=== PATIENT | male | born 1990 | race Caucasian/White ===

== ENCOUNTER 2017-04-02 18:44 | Emergency (ER) | payer SELFPAY ==
[~2017-04-02] VITALS: Ht 180.3 cm; Wt 80.6 kg
[2017-04-02 18:50] VITALS: BP 111/72
== END 2017-04-02 19:44 | disposition home or self-care (01) ==
LOC: ED 19:30
DX: M25.561 Pain in right knee (principal); G89.11 Acute pain due to trauma
CPT/HCPCS: 29505

== ENCOUNTER 2018-01-08 22:46 | Emergency (ER) | payer SELFPAY ==
[~2018-01-08] VITALS: Ht 177.8 cm; Wt 82.3 kg
[2018-01-08] MEDS ORDERED: ONDANSETRON ODT 4 MG PO ONE (23:30)
[2018-01-08 23:32] LABS: BASOPHILS # (AUTO) 0.05 x10^3/uL (0-0.1); BASOPHILS % (AUTO) 1 % (0-1); EOSINOPHILS # (AUTO) 0.15 x10^3/uL (0-0.4); EOSINOPHILS % (AUTO) 2 % (1-7); LYMPHOCYTES # (AUTO) 2.03 x10^3/uL (1-3.4); LYMPHOCYTES % (AUTO) 32 % (22-44); MD NO; MEAN CORPUSCULAR HEMOGLOBIN 31.9 pg (27.5-34.5); MEAN CORPUSCULAR HGB CONC 34.2 g/dL (33.2-36.2); MEAN CORPUSCULAR VOLUME 93.2 fL (81-97); MEAN PLATELET VOLUME 9.9 fL (7.4-10.4); MONOCYTES # (AUTO) 0.39 x10^3/uL (0.2-0.8); MONOCYTES % (AUTO) 6 % (2-9); NEUTROPHILS # (AUTO) 3.74 x10^3/uL (1.8-6.8); NEUTROPHILS % (AUTO) 59 % (42-75); PLATELET COUNT 126 x10^3/uL (130-400); RED BLOOD COUNT 4.92 x10^6/uL (4.38-5.82); RED CELL DISTRIBUTION WIDTH 14.9 % (9.4-14.8)
[2018-01-08 23:40] LABS: ALBUMIN 3.8 g/dL (3.4-5.0); ANION GAP 7 mmol/L (5-15); CALCIUM 8.8 mg/dL (8.5-10.1); CHLORIDE 107 mmol/L (98-107)
[2018-01-08 23:44] LABS: ALANINE AMINOTRANSFERASE 36 U/L (12-78); ALKALINE PHOSPHATASE 91 U/L (45-117); BILIRUBIN,TOTAL 0.4 mg/dL (0.2-1.0); CREATININE 1.21 mg/dL (0.7-1.3)
[2018-01-09] MEDS ORDERED: ONDANSETRON ODT 4 MG ONE (00:03)
[2018-01-09 00:04] LABS: MICROSCOPIC NOT IND
[2018-01-09 00:12] LABS: CULTURE INDICATED? NO
[2018-01-09 02:15] VITALS: BP 106/64
== END 2018-01-09 02:41 | disposition home or self-care (01) ==
LOC: ED 23:59
DX: R10.32 Left lower quadrant pain (principal); R11.0 Nausea
CPT/HCPCS: 36415; 74021; 74176; 76870; 80053; 81003; 85025; 99285; Q0162